=== PATIENT | female | born 1995 ===

== ENCOUNTER 2024-09-22 13:43 | Emergency (ER) | payer OTHER, SELFPAY ==
[2024-09-22] VITALS (14 sets, daily range): BP systolic 70–145; BP diastolic 52–91; PULSE 59–102; RESP 11–18; TEMP 36.2; O2SAT 91–99; BMI 33.1
--- NOTE | 2024-09-22 14:34 | ED.SYNCOPE ---
HPI - Syncope General Chief Complaint: Syncope/Fainted Stated Complaint: passed out twice in the last hour Time Seen by Provider: 09/22/24 13:44 History of Present Illness HPI narrative: This 28-year-old female comes in reporting 2 episodes of syncope that occurred prior to arrival. She is here visiting from [facility] with her friend. Her friend saw her get lightheaded briefly before becoming pale and having loss of consciousness. The 1st episode lasted about 10 seconds and occurred while she was sitting at a table. The patient then went to lay down and 15 or 20 minutes later while laying down she had another similar episode of syncope with prodrome. She does not describe any pain, nausea, vomiting, shortness of breath, or exercise intolerance. She did have a similar episode about 3 years ago and did wear a Zio patch with no findings to explain what happened at that time. Currently she feels back to normal. She states that she did not sleep much at all last night and both the the patient and her friend report that they have been taking more alcohol recently. She denies having any fevers or signs of infection. Related Data Home Medications ?Medication ?Instructions ?Recorded ?Confirmed aripiprazole 5 mg tablet (Abilify) 5 mg PO DAILY 09/22/24 09/22/24 escitalopram oxalate 5 mg tablet 15 mg PO DAILY 09/22/24 09/22/24 (Lexapro) Allergies Allergy/AdvReac Type Severity Reaction Status Date / Time No Known Drug Allergies Allergy Verified 09/22/24 13:51 Review of Systems Status of ROS: Reports: 10 or more systems reviewed and unremarkable except as noted in History and below Narrative: Constitutional: No fevers, no weight gain or loss. Eyes: No discharge. No vision changes. HENT: No congestion, no sore throat, no ear pain. Cardiovascular: No chest pain, no palpitations. Respiratory: No shortness of breath, no wheezes, no cough. Gastrointestinal: No abdominal pain, no vomiting, no diarrhea. Genitourinary: No dysuria, no hematuria. Musculoskeletal: Normal range of motion. Skin: No rashes, no pruritis. Neurological: No dizziness, weakness, sensory change, speech change. Endo/Heme/Allergies: No bruising or bleeding. No polydipsia. Pysch: no suicidality, no anxiety. All other systems reviewed and are negative. Exam Narrative: Exam Narrative: Constitutional: Well-developed, well-nourished, no acute distress. HEENT: Normocephalic, atraumatic. Neck: Normal range of motion. Nontender. Supple. Heart: Regular. No murmurs. Normal rate. Intact distal pulses. Lungs: Clear to auscultation. No chest discomfort. No wheezes, rhonchi, or rales. Abdomen: Normal bowel sounds. Nontender. No rebound tenderness. Genitalia: Deferred. Back: No midline tenderness. Normal range of motion. Extremities: Normal range of motion. No injury. Skin: Intact. No rash. Warm. No erythema or pallor. Neurologic: No altered sensation. No weakness. Alert and oriented. Psychiatric: No suicidality. No anxiety or depression. No insomnia. Nursing notes and vitals signs are reviewed. Const: Vital Signs, click to edit/add: Vital Signs - 24 hr 09/22/24 13:46 09/22/24 14:43 09/22/24 14:44 Temperature 97.2 F L Pulse Rate 60 Pulse Rate [Pulse Oximeter] 78 Respiratory Rate 16 18 18 Blood Pressure 145/91 H Blood Pressure [Ri ght Upper Arm] 135/89 Pulse Oximetry 97 93 Oxygen Delivery Me thod Room Air 09/22/24 14:45 09/22/24 15:04 09/22/24 15:13 Temperature Pulse Rate 59 L 66 Pulse Rate [Pulse Oximeter] Respiratory Rate 16 14 18 Blood Pressure 127/85 Blood Pressure [Ri ght Upper Arm] Pulse Oximetry 91 93 Oxygen Delivery Me thod 09/22/24 15:15 09/22/24 15:17 09/22/24 15:30 Temperature Pulse Rate 79 77 82 Pulse Rate [Pulse Oximeter] Respiratory Rate 15 18 13 Blood Pressure 121/78 Blood Pressure [Ri ght Upper Arm] Pulse Oximetry 96 94 99 Oxygen Delivery Me thod 09/22/24 15:32 09/22/24 15:34 09/22/24 15:35 Temperature Pulse Rate 102 H 69 62 Pulse Rate [Pulse Oximeter] Respiratory Rate 17 15 15 Blood Pressure 70/52 L 144/90 H Blood Pressure [Ri ght Upper Arm] Pulse Oximetry 99 93 93 Oxygen Delivery Me thod 09/22/24 15:45 09/22/24 15:47 Temperature Pulse Rate 84 81 Pulse Rate [Pulse Oximeter] Respiratory Rate 11 L Blood Pressure 114/72 Blood Pressure [Ri ght Upper Arm] Pulse Oximetry 96 99 Oxygen Delivery Me thod Course Vital Signs Vital signs: Initial Vital Signs Temperature 97.2 F L 09/22/24 13:46 Temperature Source Temporal Artery Scan 09/22/24 13:46 Pulse Rate 78 09/22/24 13:46 Respiratory Rate 16 09/22/24 13:46 Blood Pressure 135/89 09/22/24 13:46 Blood Pressure Mean 104 09/22/24 13:46 Blood Pressure Position Sitting 09/22/24 13:46 Pulse Oximetry 97 09/22/24 13:46 Oxygen Delivery Method Room Air 09/22/24 13:46 Vital Signs Temperature 97.2 F L 09/22/24 13:46 Pulse Rate 78 09/22/24 13:46 Respiratory Rate 16 09/22/24 13:46 Blood Pressure 135/89 09/22/24 13:46 Pulse Oximetry 97 09/22/24 13:46 Oxygen Delivery Method Room Air 09/22/24 13:46 Temperature 97.2 F L 09/22/24 13:46 Pulse Rate 81 09/22/24 15:47 Respiratory Rate 11 L 09/22/24 15:45 Blood Pressure 114/72 09/22/24 15:47 Pulse Oximetry 99 09/22/24 15:47 Oxygen Delivery Method Room Air 09/22/24 13:46 Medications Administered Medications: Discontinued Medications Generic Name Dose Route Start Last Admin Trade Name Freq PRN Reason Stop Dose Admin Sodium Chloride 1,000 mls @ 1,000 mls/hr 09/22/24 15:00 09/22/24 15:28 0.9 % Sodium Chloride 1000 Ml IV 09/22/24 15:59 1,000 mls/hr .Q1H RAISSA Administration MDM - Syncope MDM Narrative Medical decision making narrative: This patient comes in because of 2 syncopal events that occurred with prodrome symptoms. She feels back to normal at this time. She arrives here with normal vital signs and EKG is obtained showing normal sinus rhythm and rate. I did describe various causes of decreased supply of oxygen and glucose to the brain. She did become pale on each episode according to her friend who was observing what happened. She is not showing any signs of seizure and has not had any postictal symptoms. The patient is otherwise healthy and is not on any new medication. The patient did sit up toward the end of her suppose that initial visit and began to have another episode. She was not on the monitor when this occurred. We did then order labs and these all returned with reassuring results. She was continued to be observed on the monitor and had another syncopal episode that was captured. It began with bradycardia down into the 40s and then she went into about a 12nd pause and then her heart spontaneously restarted. She had a couple more of these episodes and was able to of forego 1 by coughing or bearing down as she began to feel lightheaded. I did speak with forest nursery worker and the emergency room physician at [facility]. The forest nursery worker's name is Dr. Morfin and the ER physician is Dr. Solorio. The plan was to bring her there is soon as possible for evaluation by floral clerk for possible pacing and she may in fact go to the lab technologist. The patient did not receive any atropine which could be given if the recurrent episode occurs but in between these pauses she has heart rate in the 60s to 80s. She does have pads on her chest if pacing is needed. Time spent in critical care this patient was 1 hour. Lab Data Labs: Lab Results 09/22/24 09/22/24 09/22/24 Range/Units 14:52 14:54 14:56 WBC 11.28 H (4.50-11.00) K/uL RBC 4.61 (4.00-5.20) m/uL Hgb 14.0 (12.0-16.0) gm/dL Hct 41.5 (33.0-51.0) % MCV 90 (80-100) fL MCH 30 (26-34) pg MCHC 34 (32-36) gm/dL RDW Coeff of Marina 13.0 (11.5-15.5) % Plt Count 310 (140-440) K/uL Neut % (Auto) 76.3 H (42.0-72.0) % Lymph % (Auto) 16.5 L (20-44) % [place] % (Auto) 5.3 (0.0-11.0) % Eos % (Auto) 0.3 (0.0-7.0) % Baso % (Auto) 0.3 (0.0-3.0) % Neut # (Auto) 8.60 H (1.7-7.0) K/uL Lymph # (Auto) 1.90 (0.90-2.90) K/uL [place] # (Auto) 0.60 (0.00-0.90) K/UL Eos # (Auto) 0.00 (0.00-0.50) K/uL Baso # (Auto) 0.00 (0.00-0.30) K/uL Abs Immat Gran (auto) 0.10 (0.00-0.30) K/uL Imm/Tot Granulo (auto) 1.3 % Sodium 133 L (135-149) mmol/L Potassium 3.6 (3.6-5.1) mmol/L Chloride 100 (96-114) mmol/L Carbon Dioxide 25 (20-32) mmol/L Anion Gap 8 (7-15) mEq/L BUN 11 (5-24) mg/dL Creatinine 0.7 (0.5-1.5) mg/dL Estimated Creat Clear 112.01 Estimated GFR 121 ml/min Glucose 130 H (60-115) mg/dL Calcium 9.2 (8.4-10.6) mg/dL Magnesium 2.0 (1.5-2.6) mg/dL TSH 1.360 (0.270-4.20) uIU/mL Urine Color Yellow (Yellow) Urine Appearance Clear (Clear) Urine pH 8.5 (5.0-8.5) Ur Specific Philip 1.015 (1.000-1.030) Urine Protein 2+ A (Negative) Urine Glucose (UA) Negative (Negative) Urine Ketones Negative (Negative) Urine Blood Negative (Negative) Urine Nitrite Negative (Negative) Urine Bilirubin Negative (Negative) Urine Urobilinogen 0.2 (0.2-1.0) Ur Leukocyte Esterase Negative (Negative) Urine RBC 0-2 (0-2) Urine WBC 2-5 (0-5) Ur Squamous Epith Cells Moderate A (None-Few) Amorphous Sediment Few A (None) Urine Bacteria Moderate A (None) Urine HCG, Qual (Negative) Urine Opiates Screen Negative (Negative) Ur Buprenorphine Scrn Negative (Negative) Ur Oxycodone Screen Negative (Negative) Urine Methadone Screen Negative (Negative) Ur Barbiturates Screen Negative (Negative) U Tricyclic Antidepress Negative (Negative) Ur Phencyclidine Scrn Negative (Negative) Ur Amphetamines Screen Negative (Negative) U Methamphetamines Scrn Negative (Negative) U Benzodiazepines Scrn Negative (Negative) Urine Cocaine Screen Negative (Negative) U Marijuana (THC) Screen Negative (Negative) Ur Drug Screen Comment See Note Ethyl Alcohol < 0.01 (0.01-0.03) % POC Glucose 110 (60-115) mg/dl 09/22/24 Range/Units 15:27 WBC (4.50-11.00) K/uL RBC (4.00-5.20) m/uL Hgb (12.0-16.0) gm/dL Hct (33.0-51.0) % MCV (80-100) fL MCH (26-34) pg MCHC (32-36) gm/dL RDW Coeff of Marina (11.5-15.5) % Plt Count (140-440) K/uL Neut % (Auto) (42.0-72.0) % Lymph % (Auto) (20-44) % [place] % (Auto) (0.0-11.0) % Eos % (Auto) (0.0-7.0) % Baso % (Auto) (0.0-3.0) % Neut # (Auto) (1.7-7.0) K/uL Lymph # (Auto) (0.90-2.90) K/uL [place] # (Auto) (0.00-0.90) K/UL Eos # (Auto) (0.00-0.50) K/uL Baso # (Auto) (0.00-0.30) K/uL Abs Immat Gran (auto) (0.00-0.30) K/uL Imm/Tot Granulo (auto) % Sodium (135-149) mmol/L Potassium (3.6-5.1) mmol/L Chloride (96-114) mmol/L Carbon Dioxide (20-32) mmol/L Anion Gap (7-15) mEq/L BUN (5-24) mg/dL Creatinine (0.5-1.5) mg/dL Estimated Creat Clear Estimated GFR ml/min Glucose (60-115) mg/dL Calcium (8.4-10.6) mg/dL Magnesium (1.5-2.6) mg/dL TSH (0.270-4.20) uIU/mL Urine Color (Yellow) Urine Appearance (Clear) Urine pH (5.0-8.5) Ur Specific Philip (1.000-1.030) Urine Protein (Negative) Urine Glucose (UA) (Negative) Urine Ketones (Negative) Urine Blood (Negative) Urine Nitrite (Negative) Urine Bilirubin (Negative) Urine Urobilinogen (0.2-1.0) Ur Leukocyte Esterase (Negative) Urine RBC (0-2) Urine WBC (0-5) Ur Squamous Epith Cells (None-Few) Amorphous Sediment (None) Urine Bacteria (None) Urine HCG, Qual Negative (Negative) Urine Opiates Screen (Negative) Ur Buprenorphine Scrn (Negative) Ur Oxycodone Screen (Negative) Urine Methadone Screen (Negative) Ur Barbiturates Screen (Negative) U Tricyclic Antidepress (Negative) Ur Phencyclidine Scrn (Negative) Ur Amphetamines Screen (Negative) U Methamphetamines Scrn (Negative) U Benzodiazepines Scrn (Negative) Urine Cocaine Screen (Negative) U Marijuana (THC) Screen (Negative) Ur Drug Screen Comment Ethyl Alcohol (0.01-0.03) % POC Glucose (60-115) mg/dl ECG Data Attestation: I personally reviewed and interpreted this ECG as follows: Interpretation: Normal sinus rhythm. Rate is 68 beats per minute. There are no ST or T-wave abnormalities. Repeat EKG shows sinus bradycardia and rate of 56 beats per minute. There are no ST or T-wave abnormalities. Critical Care Time Critical Care Time Critical Care Time: Yes Attestation: The patient required my highest level preparedness to intervene emergently and I personally spent this critical care time directly and personally managing the patient. This critical care time included: Obtaining a history; Examining the patient; Pulse oximetry; Ordering and reviewing of studies; Arranging urgent treatment with development of a management plan; Evaluation of patients response to treatment; Frequent reassessment discussions with other providers. This critical care time was performed to assess and manage the high probability of imminent life-threatening deterioration that could result in multiorgan failure. It was exclusive of separate billable procedures and treating other patients and teaching time. Total Critical Care Time in Minutes: 60 Discharge Plan Discharge Clinical Impression: Vasovagal syncope Patient Disposition: [facility] Condition: Unchanged Prescriptions: No Action escitalopram oxalate [Lexapro] 5 mg tablet 15 mg PO DAILY aripiprazole [Abilify] 5 mg tablet 5 mg PO DAILY Stand Alone Forms: [facility] Info Instructions
--- NOTE | 2024-09-22 14:48 | PC.NURSE ---
called to room by pt partner for patient having episode of what was described earlier, pt found to be unresponsive for approx 5 seconds, awoke gasped and became more alert within 10-15 seconds, Dr Hart at bedside, monitors applied and IV placed
--- OUTSIDE RECORDS SUMMARY | 2024-09-22 14:50 | XMS_ITS | Clinical Summary ---
Author Organization [facility] Address [address] [place] [address] Care Team Providers Care Limnologist Name Role Phone Unavailable Primary Care Provider Unavailabl e Source Comments In the event that this is information that is protected by federal Confidentiality of Substance UseDisorder Patient Records, 42 CFR Part 2 prohibits the unauthorized disclosure of these records.[facility] Allergies No known active allergies Medications polyethylene glycol 17 gram packet Take 17 g by mouth daily. 10 each 02/28/2021 Active DULoxetine 20 mg capsuleIndicatio ns:Anxiety,Depre ssion, unspecified depression type Take 1 capsule by mouth daily. 30 capsule 03/13/2021 Active DULoxetine 20 mg capsuleIndicatio ns:Anxiety,Depre ssion, unspecified depression type Take 1 capsule by mouth daily. 30 capsule 1 04/03/2021 Active dicyclomine 10 mg capsule Take 1 capsule by mouth 4 (four) times daily before meals and nightly. 30 capsule 05/28/2021 Active hydrOXYzine 25 mg tablet TAKE 1/2 TO 1 TABLET BY MOUTH EVERY 8 HOURS NEEDED FOR ANXIETY 11/15/2021 Active busPIRone 7.5 mg tablet Take 1 tablet by mouth. 06/12/2021 Active escitalopram oxalate 10 mg tablet Take 1 tablet by mouth daily. 03/16/2022 Active Active Problems Problem Noted Date Diagnosed Date Depression 03/09/2019 Anxiety 02/23/2019 Immunizations Immunization Administration Dates Next Due Diphth/pertus, Pernell/tet (Historical) 03/0 06/2001,10/14/1997,04/24/1996, 997,1995 HPV - 9-Valent (GARDASIL 9) 04/17/2022, 2,06/26/2021 Haemophilus (Hib) (Historical) 7,04/19/1996,02/20/1996, 996 Hep B, unspecified formulation 07/24/1996,1995,1995 IPV 04/15/2001, 8,02/20/1996, 996 MMR 04/19/2001,01/22/1997 Tdap 02/08/2021,08/15/2006 Varicella 10/30/1996 Family History Medical History Relation Name Comments No Known Problems Father Diabetes Mother Thyroid Disease Mother Arthritis-Rheumatoid Neg Hx Asthma Neg Hx Breast Cancer Neg Hx Colon Cancer Neg Hx Colon Polyps Neg Hx Coronary Artery Disease Neg Hx High Cholesterol Neg Hx Hypertension Neg Hx Migraines Neg Hx Ovarian Cancer Neg Hx Prostate Cancer Neg Hx Stroke Neg Hx Uterine Cancer Neg Hx Relation Name Status Comments Father Alive Mother Alive Social History Tobacco Use Types Packs/Day Years Used Date Smoking Tobacco: Every Day Cigarettes 0.2 4 E-Cigarettes Smokeless Tobacco: Never Tobacco Cessation:Ready to Q uit: Not Asked; Counseling Given: Not Answered Comments:Social Alcohol Use Standard Drinks/Week Comments Yes 4 (1 standard drink = 0.6 oz pur e alcohol) daily [employer] Answer Date Recorded Please choose the link for ' [employer]'above to launch [email or web address], a personalized community referral platform for a patient's SDOH needs. 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[employer]-[place] Not on f ile Not on file Not on file Last Filed Vital Signs Vital Sign Reading Time Taken Comments Blood Pressure 118/80 04/17/2022 9:15 AM FIELD MAP EDITOR Pulse 93 04/17/2022 9:15 AM FIELD MAP EDITOR Temperature 36.4 C (97.6 F) 04/17/2022 9:15 AM FIELD MAP EDITOR Respiratory Rate 16 04/17/2022 9:15 AM FIELD MAP EDITOR Oxygen Saturation 98% 12/25/2021 11:07 AM FIELD MAP EDITOR Inhaled Oxygen Concentration - - Weight 73.9 kg (163 lb) 04/17/2022 9:15 AM FIELD MAP EDITOR Height 168.3 cm (5' 6.25) 03/13/2021 9:34 AM CS T Body Mass Index 26.11 03/13/2021 9:34 AM FIELD MAP EDITOR Plan of Treatment Health Maintenance Due Date Last Done Comments LIPID TESTING 10/19/2013 Pneumococcal 0-49 (1 of 2 - PCV) 10/19/2014 CERVICAL CANCER SCREENING 03/09/2022 03/09/2019 COVID-19 VACCINE (3 - season) 2023 03/05/2021, 09/21/2020 INFLUENZA (#1) 2024 01/12/2022, 03/15 (Declined), 02/23/2019 (Declined) DTAP/TDAP/TD (8 - Td or Tdap) 02/08/2031 02/08/2021, 08/15/2006, 04/15/2001, Additional history exists Chlamydia Screening-Yearly Discontinued 06/09, 03/09/2019, 03/09/2019 HEPATITIS C SCREENING Completed 04/17/2022 HIV SCREENING Completed 04/17/2022 MENINGOCOCCAL B (MENB) Aged Out No lo nger eligible based on patient's age to complete this topic Procedures Procedure Name Priority Date/Time Associated Diagnosis Comments HIV ANTIGEN/ANTIBODY,REF DIOGO CONFIRMATION Routine 04/17/2022 9:46 AM FIELD MAP EDITOR Screen for STD (sexually transmitted disease) HEPATITIS C ANTIBODY, REFLEX CONFIRMATION ([place]/NORTH/CENTRAL/ ) Routine 04/17/2022 9:46 AM FIELD MAP EDITOR Screen for STD (sexually transmitted disease) PAP TEST ([facility]) Routine 03/09/2019 12 :48 PM FIELD MAP EDITOR Encounter for gynecological examination with abnormal finding -CT/GC (AMANDA), THINPREP Routine 03/09/2019 12:48 PM FIELD MAP EDITOR from Last 3 Months or Most Recently Relevant to Health Maintenance Results * Hepatitis C Antibody,Reflex Confirmation (04/17/2022 9:46 AM FIELD MAP EDITOR) Hepatitis C Antibody Non-reacti ve Non-react simran 04/17/2022 5:56 PM FIELD MAP EDITOR [facility] Comment:Antibodies to HCV No t Detected, does not exclude the possibility of exposure to HCV. Blood VEIN SPECIMEN / Unknown Blood Collection / Unknown 04/17/2022 9:46 AM FIELD MAP EDITOR 04/17/2022 9:46 AM FIELD MAP EDITOR Wanda Fall MD IMMUNOLOGY ORDERABLES Final Result Performing Organization Address [facility] de Phone Number [facility] [address] [place] [address] * HIV 1/2 Antigen/Antibody,Reflex Confirmation (04/17/2022 9:46 AM FIELD MAP EDITOR) [facility] HIV Antigen/Antib racquel Nonreactive Nonreactive 04/17/2022 5:56 PM FIELD MAP EDITOR [facility] Blood VEIN SPECIMEN / Unknown Blood Collection / Unknown 04/17/2022 9:46 AM FIELD MAP EDITOR 04/17/2022 9:46 AM FIELD MAP EDITOR Narrative [facility] - 04/17/2022 5:56 PM FIELD MAP EDITOR HIV-1 antigen and HIV-1/HIV-2 antibodies were not detected. No laboratory evidence of HIV infection. Wanda Fall MD CHEMISTRY ORDERABLES Final Result Performing Organization Address [facility] de Phone Number [facility] [address], [place] [id number] * -C.trachomatis/N.gonorrhoeae(AMANDA),Pap (03/09/2019 12:48 PM FIELD MAP EDITOR) 03/09/2019 12:4 8 PM FIELD MAP EDITOR 03/10/2019 7:57 AM FIELD MAP EDITOR Comment:GENITAL Filomena Carter COAL CRUSHER OPERATOR, SEWING TRIMMER IMMUNOLOGY ORDERABLE S Final Result Performing Organization Address [facility] Co de Phone Number [facility] [address], [place] [phone] * Pap Test (03/09/2019 12:48 PM FIELD MAP EDITOR) Conversion Final Diagnosis TEST NAME: THINPREP PAP WITH PREVENTIVE MAINTENANCE ENGINEER INTERPRETATION/RES ULT: NEGATIVE FOR INTRAEPITHELIAL LESION OR MALIGNANCY. STATEMENT OF ADEQUACY: SATISFACTORY FOR EVALUATION; ENDOCERVICAL/TRANS FORMATION ZONE COMPONENT PRESENT. [facility] Conversion Patient Name: ANDREW HART Specimen #: [id number] Procedure Date: 03/09/2019 /Age: 9 1995 (Age: 23) Gender: F Accessioned: 03/10/2019 Address: [address] [place] [address] Reported: 03/12/2019 Encounter: [id number] Location: [facility] [place] Physician(s): FILOMENA CARTER FINISHING MANAGER : CYTOPATHOLOGY - GYNECOLOGIC REPORT Diagnosis: TEST NAME: THINPREP PAP WITH PREVENTIVE MAINTENANCE ENGINEER INTERPRETATION/RES ULT: NEGATIVE FOR INTRAEPITHELIAL LESION OR MALIGNANCY. STATEMENT OF ADEQUACY: SATISFACTORY FOR EVALUATION; ENDOCERVICAL/TRANS FORMATION ZONE COMPONENT PRESENT. [place] SHANNA EDEN(ASCP) mn/03/12/2019 Report Electronically Signed Specimen: THINPREP PAP WITH PREVENTIVE MAINTENANCE ENGINEER Clinical Diagnosis and History Specimen Source: Both Ecto and Endocervix Other Clinical Conditions: OTHER: LST PAP RSLT,UNKWN, 1ST PAP PAP SMEARS ARE SCREENING TESTS SUBJECT TO BOTH FALSE NEGATIVE AND FALSE POSITIVE RESULTS EVIDENCED BY DATA PUBLISHED IN THE MEDICAL LITERATURE. YOUR PATIENT'S RESULT SHOULD BE INTERPRETED IN THIS CONTEXT, TOGETHER WITH THE PATIENT'S HISTORY AND CLINICAL FINDINGS. [facility] AP Specimen 03/09/2019 12:4 8 PM FIELD MAP EDITOR 03/10/2019 1:57 AM FIELD MAP EDITOR us Filomena Carter COAL CRUSHER OPERATOR, SEWING TRIMMER PATHOLOGY/CYTOLOGY O RDERABLES Edited Result - Final [facility] [address] [place] [address] from Last 3 Months or Most Recently Relevant to Health Maintenance
--- OUTSIDE RECORDS SUMMARY | 2024-09-22 14:50 | XMS_ITS | Encounter Summary ---
Author Organization [facility] Address [address] [place] [address] Care Team Providers Care Caul Dresser Name Role Phone Yee Holguin Primary Care Provider +1 -[phone] Braeden Bergeron DO Unavailable Reason for Visit * Reason Comments Medication Issue Encounter Details Date Type Department Care Team ([facility] st Contact Info) Description 01/08/2022 Nurse Triage [facility] 200 [address] [place] [address] Yee Holguin APNP [address] [facility] 2ND [place] [address] Medication Issue Social History Tobacco Use Types Packs/Day Years Used Date Smoking Tobacco: Every Day Smokeless Tobacco: Never Comments:only vape Alcohol Use Standard Drinks/Week Comments Yes 10 (1 standard drink = 0.6 oz pu re alcohol) PHQ-2 Answer Date Recorded Initial depression screening score: 6 06/12/2021 Inadequate Housing Answer Date Recorded Social Determinants: Housing (Overall Score Help er) 0 06/05/2021 Sexually Active Control Partners Comments Yes Female Comments No Sex and Gender Information Value Date Recorded Sex Assigned at Not on file Legal Sex Female 11:39 AM CDT Gender Identity Female 06/05/2021 12:03 PM CDT Sexual Orientation Bisexual 06/05/2021 12 :03 PM CDT COVID-19 Exposure Response Date Recorded In the last 10 days, have yo u been in contact with someone who was confirmed or suspected to have Coronavirus/COVID-19? No / Unsure 01/09/2022 3:31 PM CUTTER ALUMINUM SHEET documented as of this encounter Mental Status * An Agitation Sedation Scale (RASS) Answer Entry Date Author 1 01/09/2022 5:31 PM CUTTER ALUMINUM SHEET Bethnay Kuo RN documented in this encounter Miscellaneous Notes * Telephone Encounter - Lulu Horner MA - 01/10/2022 9:26 AM CUTTER ALUMINUM SHEET Patient message sent requesting previous dosing. ER ALUMINUM SHEET * Telephone Encounter - Ilia Brown MD - 01/09/2022 4:03 PM CUTTER ALUMINUM SHEET I can reorder previously prescribed Lexapro if proper dose regimen can be obtained from patient or pharmacy as it is not in our medication history. Please schedule routine follow-up appointment with PCP within 3-4 months, may be seen by me sooner if anxiety not well controlled with medication change. ER ALUMINUM SHEET * Telephone Encounter - Prachi Richard RN - 01/09/2022 8:11 AM CST ----- Message from Ignacia Hart sent at 01/05/2022 8:32 PM CUTTER ALUMINUM SHEET ----- Regarding: Medication Good evening, I think i may need to make an appointment in regards to my medication. Duloxitine has been almost making my anxiety worse, and i feel i possibly want to switch back to my old medication lexapro. Is this something i need to make an appointment for, and if so, is a video chat type thing possible? I would only be able to make it to the office on mondays. thank you! Pt stated that she has been taking the duloxetine is making her symptoms worse (has been on this for about a year or so), and is asking if she can go back on her lexapro (pt switched to low libido). Pt stated this is the only concerning factor and denies chest pain, GOODWIN, SOB, n/v/d, lightheadedness/dizziness, lethargy, visual/audible disturbances, SI, dehydration, cough, congestion, AMS or fever. RN will send to PCP. Pt agrees and is compliant with protocol education, advice and when to seek medical attention. Reason for Disposition ??? Prescription request for new medicine (not a refill) Protocols used: MEDICATION QUESTION CALL-A- ER ALUMINUM SHEET * Telephone Encounter - Prachi Richard RN - 01/08/2022 8:27 AM CST Attempted to contact patient. No answer, left a voicemail with a callback number for patient to return call to the clinic at their convenience. ER ALUMINUM SHEET * Telephone Encounter - Lulu Horner MA - 01/08/2022 8:16 AM CUTTER ALUMINUM SHEET ----- Message from Ignacia Hart sent at 01/05/2022 8:32 PM CUTTER ALUMINUM SHEET ----- Regarding: Medication Good evening, I think i may need to make an appointment in regards to my medication. Duloxitine has been almost making my anxiety worse, and i feel i possibly want to switch back to my old medication lexapro. Is this something i need to make an appointment for, and if so, is a video chat type thing possible? I would only be able to make it to the office on mondays. thank you! ER ALUMINUM SHEET documented in this encounter Plan of Treatment Not on file documented as of this encounter Visit Diagnoses Not on filedocumented in this encounter Discontinued Medications Medication Sig Discontinue Reason Start Date End Da te DULoxetine (CYMBALTA) 30 MG capsuleIndications:Gener alized anxiety disorder Take 1 capsule by mouth daily. Ineffective 09/18/2021 01/09/2022 documented as of this encounter Additional Health Concerns Assessment Noted Time PHQ-9 Depression Total Score: 20 022 1:11 PM CDT documented as of this encounter Care Teams Caul Dresser Relationship Specialty Start Date End Date Yee Holguin APNP [address] [address] PCP - General Nurse Practitioner - Family 06/12/21 Braeden Bergeron DO [address] [place] [address] Cardiovascular Disease 02/28/22 documented as of this encounter
--- OUTSIDE RECORDS SUMMARY | 2024-09-22 14:50 | XMS_ITS | Encounter Summary ---
Author Organization [facility] Address [address] [place] [address] Care Team Providers Care Legal Executive Assistant Name Role Phone Yee Holguin Primary Care Provider +1 -[phone] Braeden Bergeron DO Unavailable Encounter Details Date Type Department Care Team ([facility] st Contact Info) Description 01/05/2022 E-[address] [facility] [address] [place] [address] Yee Holguin APNP [address] [facility] [address] [place] [address] Medication Social History Tobacco Use Types Packs/Day Years [...] Orientation Bisexual 06/05/2021 12 :03 PM CDT documented as of this encounter Plan of Treatment Not on file documented as of this encounter Visit Diagnoses Not on filedocumented in this encounter Additional Health Concerns Assessment Noted Time PHQ-9 Depression Total Score: 20 022 1:11 PM CDT documented as of this encounter Care Teams Legal Executive Assistant Relationship Specialty Start Date End Date Yee Holguin APNP [address] [facility] 2ND [place] [address] PCP - General Nurse Practitioner - Family 06/12/21 Braeden Bergeron DO [address] [place] [address] Cardiovascular Disease 02/28/22 documented as of this encounter
--- OUTSIDE RECORDS SUMMARY | 2024-09-22 14:50 | XMS_ITS | Encounter Summary ---
Author Organization [facility] Address [address] [place] [address] Care Team Providers Care Press Supervisor Name Role Phone Yee Holguin Primary Care Provider +1 -[phone] Braeden Bergeron DO Unavailable Encounter Details Date Type Department Care Team ([facility] st Contact Info) Description 11/01/2021 E-Advice [facility] [address] [place] [address] Yee Holguin APNP [address] [facility] [address] [place] [address] Rash question on hands Social History Tobacco Use Types Packs/Day Years [...] documented as of this encounter Care Teams Press Supervisor Relationship Specialty Start Date End Date Yee Holguin APNP [address] [facility] 2[address] [place] [address] PCP - General Nurse Practitioner - Family 06/12/21 Braeden Bergeron DO [address] [place] [address] Cardiovascular Disease 02/28/22 documented as of this encounter
--- OUTSIDE RECORDS SUMMARY | 2024-09-22 14:50 | XMS_ITS | Encounter Summary ---
Author Organization [facility] Address [address] [place] [address] Care Team Providers Care Open Shank Coverer Name Role Phone Yee Holguin Primary Care Provider +1 -[phone] Braeden Bergeron DO Unavailable Encounter Details Date Type Department Care Team (Late st Contact Info) Description 12/04/2021 E-Advice [facility] [address] [place] [address] [facility] Appointment cancellation Social History Tobacco Use Types Packs/Day Years [...] documented as of this encounter Care Teams Open Shank Coverer Relationship Specialty Start Date End Date Yee Holguin APNP 4[address] [facility] [address] [place] [address] PCP - General Nurse Practitioner - Family 06/12/21 Braeden Bergeron DO [address] [place] [address] Cardiovascular Disease 02/28/22 documented as of this encounter
--- OUTSIDE RECORDS SUMMARY | 2024-09-22 14:51 | XMS_ITS | Clinical Summary ---
Author Organization [facility] Address [address] [place] [address] Care Team Providers Care It Help Desk Analyst Name Role Phone Yee Holguin SKYLAR Primary Care Provider +1 -[phone] Braeden Bergeron DO Unavailable Allergies Active Allergy Reactions Criticality Noted Date Comments Lactose (Food Or Med) Other (See Comments) High 06/11 Medications busPIRone (BUSPAR) 7.5 MG tabletIndication s:Generalized anxiety disorder Take 1 tablet by mouth 2 times daily as needed (anxiety). 60 tablet 2 06/12/2021 Active escitalopram (Lexapro) 10 MG tablet Take 1 tablet by mouth daily. 30 tablet 03/16/2022 Active Active Problems Problem Noted Date Diagnosed Date Syncope and collapse 02/08/2022 FARHEEN (generalized anxiety disorder) 01/12/2022 IBS (irritable bowel syndrome) 04/11/2021 Immunizations Immunization Administration Dates Next Due Outsell 12Y+ (Requires Dilution) 09/21/2020 DTaP 04/15/2001, 8,04/24/1996,1996,1995 Dtap, Unspecified Formulation 04/15/2001 ,10/14/1997,04/24/1996,1996,1995 HIB (HbOC) 07/24/1996,1995,1995 HIB, Unspecified Formulation 01/22/1997, 04/19/1996,02/20/1996,1995 HPV 9-Valent 08/07/2021,06/26/2021 Hep B, Unspecified Formulation 07/24/1996,1995,1995 IPV 04/15/2001, 8,02/20/1996,1995 Influenza, split virus, quad rivalent, PF 01/12/2022 MMR 04/19/2001,01/22/1997 Tdap 02/08/2021,08/15/2006 Varicella 06/26/2021,10/30/1996 Medical History Medical History Date Comments FARHEEN (generalized anxiety disorder) 01/12/2022 Family History Medical History Relation Comments Psychiatric Father Substance Abuse Father Thyroid Mother Relation Status Comments Father Alive Mother Alive Social History Tobacco Use Types Packs/Day Years Used Date Smoking Tobacco: Former Cigarettes Q uit: 09/11/2021 Smokeless Tobacco: Never Tobacco Cessation:Ready to Q uit: No; Counseling Given: Yes Comments:only vape Alcohol Use Standard Drinks/Week Comments [...] Orientation Bisexual 06/05/2021 12 :03 PM CDT Obstetrics History Last Filed Vital Signs Vital Sign Reading Time Taken Comments Blood Pressure 115/78 02/08/2022 4:01 PM OUTSIDE PROPERTY AGENT Pulse 71 02/08/2022 4:01 PM OUTSIDE PROPERTY AGENT Temperature 36.3 C (97.3 F) 01/09/2022 3:32 PM OUTSIDE PROPERTY AGENT Respiratory Rate 20 01/09/2022 7:21 PM OUTSIDE PROPERTY AGENT Oxygen Saturation 100% 02/08/2022 4:00 PM OUTSIDE PROPERTY AGENT Inhaled Oxygen Concentration - - Weight 73 kg (160 lb 15 oz) 02/08/2022 4:[address] Height 167.6 cm (5' 6) 01/12/2022 12:09 PM OUTSIDE PROPERTY AGENT Body Mass Index 25.98 01/12/2022 12:09 PM OUTSIDE PROPERTY AGENT Plan of Treatment Health Maintenance Due Date Last Done Comments Depression Screening 2007 HPV Vaccine (3 - 3-dose series) 12/27/2021 08/07/2021, 06/26/2021 COVID-19 Vaccine ( season) 2023 03/05/2021, 09/21/2020 Influenza Vaccine (#1) 2024 01/12/2022 DTaP/Tdap/Td Vaccine (8 - Td or Tdap) 02/08/2031 02/08/2021, 08/15/2006, 04/15/2001, Additional history exists Hepatitis B Vaccine Completed 07/24/1996, 1995, 1995 Varicella Vaccine Completed 06/26/2021, 10/30/1996 Hepatitis A Vaccine Aged Out No longe r eligible based on patient's age to complete this topic Meningococcal Serogroup B Vaccine Aged Out No longer eligible based on patient's age to complete this topic Meningococcal Vaccine Aged Out No sheree andrew eligible based on patient's age to complete this topic Pneumococcal Vaccine 0-49 Aged Out No longer eligible based on patient's age to complete this topic Insurance [facility] Address: [facility] [address] [place] [address] Care Teams It Help Desk Analyst Relationship Specialty Start Date End Date Yee Holguin APNP [address] [facility] 2ND [place] [address] PCP - General Nurse Practitioner - Family 06/12/21 Braeden Bergeron DO [address] [place] [address] Cardiovascular Disease 02/28/22
--- OUTSIDE RECORDS SUMMARY | 2024-09-22 14:51 | XMS_ITS | Encounter Summary ---
Author Organization [facility] Address [address] [place] [address] Care Team Providers Care Drink Waiter Name Role Phone Yee Holguin Carlene CHENG Primary Care Provider +1 -[phone] Braeden Bergeron DO Unavailable Encounter Details Date Type Department Care Team ([facility] st Contact Info) Description 06/22/2021 E-Advice [facility] [place] [address] [place], [place] [id number] Patti Hyatt, FIDELINA [address] [place] [address] [phone] Text question/ ultrasound request Social History Tobacco Use Types Packs/Day Years Used Date Smoking Tobacco: Former Smokeless Tobacco: Never Alcohol Use Standard Drinks/Week Comments Yes 10 [...] documented as of this encounter Care Teams Drink Waiter Relationship Specialty Start Date End Date Yee Holguin APNP [address] [facility] [address]ND [place] [address] PCP - General Nurse Practitioner - Family 06/12/21 Braeden Bergeron DO [address] [place] [address] Cardiovascular Disease 02/28/22 documented as of this encounter
--- OUTSIDE RECORDS SUMMARY | 2024-09-22 14:51 | XMS_ITS | Encounter Summary ---
Author Organization [facility] Address [address] [place] [address] Care Team Providers Care Violin Restorer Name Role Phone Yee Holguin Carlene CHENG Primary Care Provider +1 -[phone] Braeden Bergeron DO Unavailable Encounter Details Date Type Department Care Team ([facility] st Contact Info) Description 07/19/2021 E-Advice [facility] [place] [address] [place], [place] [id number] Patti Hyatt, FIDELINA [address] [place] [address] [phone] Question regarding Pelvis Ultrasound Social History Tobacco Use Types Packs/Day Years [...] documented as of this encounter Care Teams Violin Restorer Relationship Specialty Start Date End Date Yee Holguin APNP [address] [facility] [address]ND [place] [address] PCP - General Nurse Practitioner - Family 06/12/21 Braeden Bergeron DO [address] [place] [address] Cardiovascular Disease 02/28/22 documented as of this encounter
--- OUTSIDE RECORDS SUMMARY | 2024-09-22 14:51 | XMS_ITS | Encounter Summary ---
Author Organization [facility] Address [address] [place] [address] Care Team Providers Care Newscast Director Name Role Phone Yee Holguin Primary Care Provider +1 -[phone] Braeden Bergeron DO Unavailable Encounter Details Date Type Department Care Team ([facility] st Contact Info) Description 03/02/2022 E-Advice [facility] [address] [place] [address] Mychart, Patient Portal Driving Clearance Social History Tobacco Use Types Packs/Day Years Used Date Smoking Tobacco: Former Cigarettes Q uit: 09/11/2021 Smokeless Tobacco: Never Comments:only vape Alcohol Use [...] documented as of this encounter Care Teams Newscast Director Relationship Specialty Start Date End Date Yee Holguin APNP [address] [facility] [address] [place] [address] PCP - General Nurse Practitioner - Family 06/12/21 Braeden Bergeron DO [address] [place] [address] Cardiovascular Disease 02/28/22 documented as of this encounter
--- OUTSIDE RECORDS SUMMARY | 2024-09-22 14:51 | XMS_ITS | Encounter Summary ---
Author Organization [facility] Address [address] [place] [address] Care Team Providers Care Steel Die Printer Name Role Phone Palak Bruno MD Primary Care Provider [phone] Pcp, None Primary Care Provider Unavailabl e Pcp, Terminated Primary Care Provider Unavailabl e Source Comments In the event that this is information that is protected by federal Confidentiality of Substance User Disorder Patient Records, 42 CFR Part 2 prohibits the unauthorized disclosure of these records.[facility] Encounter Details Date Type Department Care Team (Late st Contact Info) Description 05/31/2020 Orders Only Covid Vaccine Administration - 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 -[employer] Not on f ile Not on file Not on file documented as of this encounter Plan of Treatment Not on file documented as of this encounter Visit Diagnoses Not on filedocumented in this encounter Additional Health Concerns Infection Onset Date Last Indicated Resolved Time Rule-out COVID-19 02/28/2021 02/28/2021 03/01/2021 3:54 AM CAB DRIVER Rule-out COVID-19 03/19/2021 03/19/2021 03/20/2021 12:26 AM CAB DRIVER documented as of this encounter Care Teams Steel Die Printer Relationship Specialty Start Date End Date Palak Bruno MD PCP - General Internal Medicine 03/09/19 05/27/21 Pcp, None Registration use for pt without a PCP PCP - General 05/28/21 03/17/22 Pcp, Terminated DO NOT USE - FOR SER TEAM ONLY PCP - General 03/18/22 documented as of this encounter
--- OUTSIDE RECORDS SUMMARY | 2024-09-22 14:51 | XMS_ITS | Encounter Summary ---
Author Organization [facility] Address [address] [place] [address] Care Team Providers Care Race Starter Name Role Phone Yee Holguin Carlene CHENG Primary Care Provider [phone] -[phone] Braeden Bergeron DO Unavailable Reason for Visit * Reason Comments Dizziness Encounter Details Date Type Department Care Team ([facility] Contact Info) Description 02/28/2022 E-Advice [address] [address] Ilia Brown MD [address] [facility] [address] [place] [address] Telehealth / question about work Social History Tobacco Use Types Packs/Day Years [...] PM CDT documented as of this encounter Miscellaneous Notes * Telephone Encounter - Isabell Fisher LPN - 03/02/2022 9:52 AM CST E-advice sent to patient. GER DATA WAREHOUSE GER DATA WAREHOUSE * Telephone Encounter - Ilia Brown MD - 03/01/2022 5:27 PM MANAGER DATA WAREHOUSE Given last LOC on 01/10/22, earliest ability for driving clearance would be 04/10/22, and will need to be through mortgage processing clerk. GER DATA WAREHOUSE * Telephone Encounter - Patricia Azul MA - 03/01/2022 10:45 AM CST Gang Supervisor spoke with patient. Anxiety is well controlled and her dizziness is improving. She only getsdizzy when bending down to tie her shoes. If PCP is ok she will stay with current medication and dose. She would him to confirm that this would be ok. Patient is also requesting PCP clearance to return to work and drive. GER DATA WAREHOUSE * Telephone Encounter - Ilia Brown MD - 02/28/2022 6:24 PM MANAGER DATA WAREHOUSE Not sure virtual appt necessary. Could decrease Lexapro to 5 mg daily if anxiety well controlled, o/w could consider alternative med if I can find one that may be less likely to cause dizziness. GER DATA WAREHOUSE * Telephone Encounter - Isabell Fisher LPN - 02/28/2022 11:51 AM MANAGER DATA WAREHOUSE Patient having issues with dizziness. Patient seen cardio on 02/08. Currently wearing event monitorfor 4 weeks. And advised to follow up with Cardio in 6 weeks. Cardio advised patient to see primaryto see if their are alternative medications she is taking. Patient asking for video visit due to transportation issues . Please advise. GER DATA WAREHOUSE * Telephone Encounter - Isabell Fisher LPN - 02/28/2022 11:50 AM CSTFrom: Ignacia Hart To: Ilia Brown Sent: 02/28/2022 11:48 AM MANAGER DATA WAREHOUSE Subject: Telehealth / question about work Good afternoon, Im curious if it is possible to have a telehealth appointment as i am not able to drive at this time. I live in [place] and it would be difficult for me to get out there. I have been feeling much better with no fainting spells and little dizzyness since the initial incident so i would be curious if i can start going back to work and driving. Thank you! Ignacia Portillo GER DATA WAREHOUSE documented in this encounter Plan of Treatment Not on file documented as of this encounter Visit Diagnoses Not on filedocumented in this encounter Additional Health Concerns Assessment Noted Time PHQ-9 Depression Total Score: 20 022 1:11 PM CDT documented as of this encounter Care Teams Race Starter Relationship Specialty Start Date End Date Yee Holguin APNP [address] [facility] [address] [place] [address] PCP - General Nurse Practitioner - Family 06/12/21 Braeden Bergeron DO [address] [place] [address] Cardiovascular Disease 02/28/22 documented as of this encounter
--- OUTSIDE RECORDS SUMMARY | 2024-09-22 14:51 | XMS_ITS | Encounter Summary ---
Author Organization [facility] Address [address] [place] [address] Care Team Providers Care Editing Computer Publisher Name Role Phone Yee Holguin Carlene CHENG Primary Care Provider [phone] [phone] Braeden Bergeron DO Unavailable Encounter Details Date Type Department Care Team (Late st Contact Info) Description 03/24/2022 E-Advice [facility] [address] [address] Braeden Bergeron DO [address] [place], [place] [id number] Appointment question 03/26/22 Social History Tobacco Use Types Packs/Day Years [...] documented as of this encounter Care Teams Editing Computer Publisher Relationship Specialty Start Date End Date Yee Holguin APNP [address] [address] PCP - General Nurse Practitioner - Family 06/12/21 Braeden Bergeron DO [address] [place] [address] Cardiovascular Disease 02/28/22 documented as of this encounter
--- OUTSIDE RECORDS SUMMARY | 2024-09-22 14:51 | XMS_ITS | Encounter Summary ---
Author Organization [facility] Address [address] [place] [address] Care Team Providers Care Air Tucker Name Role Phone Yee Holguin Carlene CHENG Primary Care Provider [phone] [phone] Braeden Bergeron DO Unavailable Encounter Details Date Type Department Care Team (Late st Contact Info) Description 03/28/2022 [facility]ice [facility] [address] [address] Bareden Bergeron DO [address] [place] [address] note to return to work Social History Tobacco Use Types Packs/Day [...] documented as of this encounter Care Teams Air Tucker Relationship Specialty Start Date End Date Yee Holguin APNP [address] [address] PCP - General Nurse Practitioner - Family 06/12/21 Braeden Bergeron DO [address] [place] [address] Cardiovascular Disease 02/28/22 documented as of this encounter
[2024-09-22 14:53] LABS: Glucose, Point-of-Care* 110 mg/dl (60-115)
[2024-09-22 15:04] LABS: Hematocrit 41.5 % (33.0-51.0); Hemoglobin* 14.0 gm/dL (12.0-16.0); Immature Granulocytes Pct Auto 1.3 %; Mean Corpuscular HGB Conc 34 gm/dL (32-36); Mean Corpuscular Hemoglobin 30 pg (26-34); Mean Corpuscular Volume 90 fL (80-100); RDW Coefficient of Variation % 13.0 % (11.5-15.5); Red Blood Count 4.61 m/uL (4.00-5.20); White Blood Count* 11.28 K/uL (4.50-11.00)
--- NOTE | 2024-09-22 15:04 | PC.NURSE ---
pt was in bathroom, voided and placed on portable monitor, pt stated, I don't feel right again, witnessed approx 5-10 second pause
[2024-09-22 15:08] LABS: Immature Granulocytes Abs Auto 0.10 K/uL (0.00-0.30); Lymphocytes Absolute Auto 1.90 K/uL (0.90-2.90); Slide Review Reflex No
[2024-09-22 15:09] LABS: Appearance Urine Clear (Clear)
[2024-09-22 15:15] LABS: Chloride* 100 mmol/L (96-114); Potassium* 3.6 mmol/L (3.6-5.1); Sodium* 133 mmol/L (135-149)
[2024-09-22 15:17] LABS: Blood Urea Nitrogen* 11 mg/dL (5-24); Creatinine* 0.7 mg/dL (0.5-1.5); Est. Creatinine Clearance* 112.01; Estimated Glomerular Filt Rate 121 ml/min
[2024-09-22 15:18] LABS: Anion Gap 8 mEq/L (7-15); Calcium* 9.2 mg/dL (8.4-10.6); Carbon Dioxide* 25 mmol/L (20-32); Glucose* 130 mg/dL (60-115)
[2024-09-22 15:19] LABS: Cannabinoid Screen Urine Negative (Negative); Methamphetamines Screen Urine Negative (Negative); Tricyclic Antidepressant Urine Negative (Negative)
[2024-09-22 15:28] LABS: Ethanol* < 0.01 % (0.01-0.03)
--- NOTE | 2024-09-22 15:30 | PC.NURSE ---
pt had another pause, witnessed by staff, pt alert again within 5-10 seconds, becomes pale and diaphoretic after each episode
[2024-09-22 15:38] LABS: Ur HCG Qualitative* Negative (Negative)
--- NOTE | 2024-09-22 16:20 | PC.NURSE ---
report given to EMS, pt had another episode and HR went down to the 50's and pt felt like she does when a pause is coming, had patient cough hard and bear down, this seemed to stop even as not pause or unresponsiveness, pt continued to load to ambulance stretcher, monitors in place
[2024-10-08 07:40] LABS: Troponin, Point-of-Care* 0.00 ng/ml (0.01-0.04)
== END 2024-09-22 16:20 | disposition short-term general hospital (02) ==
PROVIDERS: Emergency Provider Emergency Medicine Emergency Medical Services
DX: R55 Syncope and collapse (principal); R00.1 Bradycardia, unspecified
CPT/HCPCS: 36415; 80048; 80306; 81001; 81025; 82077; 82947; 83735; 84443; 84484; 85025; 87086; 93005; 99284; 99291; J7030

== ENCOUNTER 2024-09-22 16:05 | Outpatient (CLI) | payer OTHER, SELFPAY | END 2024-09-22 16:06 | disposition home or self-care (01) | LOC: AMB 09-24 14:34 | PROVIDERS: Visit Provider Emergency Medicine Emergency Medical Services | DX: R55 Syncope and collapse (principal); I49.9 Cardiac arrhythmia, unspecified | CPT/HCPCS: A0425; A0427 ==